=== PATIENT | female | born 1955 | race Caucasian/White ===

== ENCOUNTER 2020-07-05 09:32 | Outpatient (REF) | payer BC, SELFPAY ==
--- NOTE | ~2020-07-05 | MM_ITS ---
EXAMINATION: MM SCREENING DIGITAL BREAST TOMOSYNTHESIS, BILATERAL CLINICAL INFORMATION: Screening. Asymptomatic. The lifetime risk of breast cancer based on the Tyrer-Cuzick Model is 5%. COMPARISON: Mammography: 10/22/2017, 07/20/2011 TECHNIQUE: Digital breast tomosynthesis is performed in both the craniocaudal and mediolateral oblique views along with computer-aided detection (CAD). Synthesized 2D images are generated from the tomosynthesis. Additional right CC view is provided. FINDINGS: There are scattered areas of fibroglandular density (ACR BI-RADS breast composition Category b). The right breast shows no significant change from prior studies. There is no developing density or interval mass or architectural abnormality. Neither breast shows abnormal calcifications. The axilla and skin contours are unremarkable. The left CC view has asymmetric density retroareolar breast measuring approximately 0.7 x 0.4 cm without definite correlate on MLO view. Patient will be recalled for additional imaging. MM/MM tomosynthesis screening BI IMPRESSION: 1. Left: Retroareolar asymmetric density under 1 cm on CC view. 2. Right: No mammographic evidence of malignancy. ASSESSMENT: BI-RADS 0: Incomplete - Need Additional Imaging Evaluation RECOMMENDATION: 1. Additional views of the left breast (3-D rolled CC x2, 3-D ML nipple in profile). 2. Targeted ultrasound if warranted after review of the additional views. 3. Radiology department staff will contact the patient for additional imaging. This patient's information was entered into a reminder system with a target due date for their next mammogram.
== END 2020-07-05 09:33 | disposition home or self-care (01) ==
LOC: HO.MAMMO 09:32
PROVIDERS: PCP Physician Assistant Medical; Visit Provider Physician Assistant Medical
DX: Z12.31 Encounter for screening mammogram for malignant neoplasm of breast (principal)
CPT/HCPCS: 77063; 77067

== ENCOUNTER 2020-07-18 14:35 | Outpatient (REF) | payer BC, SELFPAY ==
--- NOTE | ~2020-07-18 | US_ITS ---
EXAMINATION: US DIAGNOSTIC ULTRASOUND BREAST, LEFT CLINICAL INFORMATION: Retroareolar density. COMPARISON: Mammography of same day as well as studies dating back to May 02, 2009. TECHNIQUE: Ultrasound of the breast is performed with real-time guzman scale imaging and color Doppler. FINDINGS: Targeted left breast ultrasound did not demonstrate any suspicious cystic or solid masses. No region of abnormal distal sound shadowing were appreciated. There is a question of an oval circumscribed structure with outer hypoechoic region and inner hyperechoic region which may represent a small lymph node measuring 6 x 3 mm in size however no definite vascular flow within the hilum is appreciated. On mammography from October 05, 2020 the density measured approximately 7 x 4 mm in size. Results are discussed with the patient at time of visit. US/US breast LT limited IMPRESSION: Retroareolar density left breast may represent intramammary lymph node as no suspicious cystic or solid mass was appreciated and no region of abnormal distal sound shadowing was seen. Recommend 6 month follow-up left breast mammogram to ensure stability. ASSESSMENT: BI-RADS 3: Probably Benign RECOMMENDATION: Diagnostic mammography in 6 months.
--- NOTE | ~2020-07-18 | MM_ITS ---
EXAMINATION: MM DIAGNOSTIC DIGITAL BREAST TOMOSYNTHESIS, LEFT Targeted left breast ultrasound CLINICAL INFORMATION: Retroareolar left breast density COMPARISON: Mammography: 07/05/2020 and studies dating back to 05/02/2009. TECHNIQUE: Digital breast tomosynthesis is performed. 2D images are generated from the tomosynthesis. The following views are obtained: Rolled craniocaudal views and spot compression left breast craniocaudal view as well as full-field 90 degree mediolateral view. Targeted left breast ultrasound FINDINGS: There are scattered areas of fibroglandular density (ACR BI-RADS breast composition Category b). Approximately 2 cm from the nipple retroareolar region there appears be persistence of a circumscribed density with question fatty hilum. No spiculated mass or suspicious calcifications identified. Targeted left breast ultrasound did not demonstrate any suspicious cystic or solid masses. No region of abnormal distal sound shadowing were appreciated. There is a question of an oval circumscribed structure with outer hypoechoic region and inner hyperechoic region which may represent a small lymph node measuring 6 x 3 mm in size however no definite vascular flow within the hilum is appreciated. On mammography from 10/05/2020 the density measured approximately 7 x 4 mm in size. Results are discussed with the patient at time of visit. MM/MM tomosynthesis added views L IMPRESSION: Retroareolar density left breast may represent intramammary lymph node as no suspicious cystic or solid mass was appreciated and no region of abnormal distal sound shadowing was seen. Recommend 6 month follow-up left breast mammogram to ensure stability. ASSESSMENT: BI-RADS 3: Probably Benign RECOMMENDATION: Diagnostic mammography in 6 months. This patient's information was entered into a reminder system with a target due date for their next mammogram.
== END 2020-07-18 14:36 | disposition home or self-care (01) ==
LOC: HO.MAMMO 14:35
PROVIDERS: Visit Provider Physician Assistant Medical
DX: R92.2 Inconclusive mammogram (principal)
CPT/HCPCS: 76642; 77061; 77065

== ENCOUNTER 2021-02-09 13:53 | Outpatient (REF) | payer BC, SELFPAY ==
--- NOTE | ~2021-02-09 | MM_ITS ---
EXAMINATION: MM DIAGNOSTIC DIGITAL BREAST TOMOSYNTHESIS, LEFT CLINICAL INFORMATION: Short interval follow-up probable benign asymmetric density retroareolar 6:00 left breast. The lifetime risk of breast cancer based on the Tyrer-Cuzick Model is 3%. COMPARISON: Mammography: 07/18/2020, 07/05/2020 (BI-RADS 0), 10/22/2017, 07/20/2011; targeted left breast ultrasound 07/18/2020 TECHNIQUE: Digital breast tomosynthesis is performed in both the craniocaudal and mediolateral oblique views along with computer-aided detection (CAD). Synthesized 2D images are generated from the tomosynthesis. FINDINGS: There are scattered areas of fibroglandular density (ACR BI-RADS breast composition Category b). Parenchymal pattern is similar to prior exam. Asymmetric density anterior central 6:00 position is stable. Finding likely stable from more remote mammography, not as well appreciated due to shifting fibroglandular densities. There is no developing density from recent exam or interval architectural changes. Left breast will be reassessed again in 6 months at time of annual exam. Results are provided to the patient at time of visit by the technologist. MM/MM tomosynthesis diagnostic LT IMPRESSION: There are no significant changes from prior study. ASSESSMENT: BI-RADS 3: Probably Benign RECOMMENDATION: Diagnostic mammography at time of annual bilateral mammography, due in 6 months. This patient's information was entered into a reminder system with a target due date for their next mammogram.
== END 2021-02-09 13:54 | disposition home or self-care (01) ==
LOC: HO.MAMMO 13:53
PROVIDERS: PCP Physician Assistant Medical; Visit Provider Physician Assistant Medical
DX: R92.2 Inconclusive mammogram (principal)
CPT/HCPCS: 77061; 77065

== ENCOUNTER 2021-10-02 14:40 | Outpatient (REF) | payer BC, SELFPAY ==
--- NOTE | ~2021-10-02 | MM_ITS ---
EXAMINATION: MM DIAGNOSTIC DIGITAL BREAST TOMOSYNTHESIS, BILATERAL CLINICAL INFORMATION: Yearly screening right breast mammogram. 6 month follow-up left breast densities. The lifetime risk of breast cancer based on the Tyrer-Cuzick Model is 4%. COMPARISON: Mammography: 02/09/2021 and studies dating back to 05/02/2009. TECHNIQUE: Digital breast tomosynthesis is performed in both the craniocaudal and mediolateral oblique views along with computer-aided detection (CAD). Synthesized 2D images are generated from the tomosynthesis. FINDINGS: There are scattered areas of fibroglandular density (ACR BI-RADS breast composition Category b). There appears to be stability of the 2 circumscribed densities about the anterior left breast dating back to 11/12/2017. One of them has the appearance of a lymph node with fatty cleft. Results are provided to the patient at time of visit by the technologist. MM/MM tomosynthesis diagnostic BI IMPRESSION: There are no significant changes from prior study. ASSESSMENT: BI-RADS 2: Benign RECOMMENDATION: Routine annual mammography screening due in 12 months. This patient's information was entered into a reminder system with a target due date for their next mammogram.
== END 2021-10-02 14:41 | disposition home or self-care (01) ==
LOC: HO.MAMMO 14:40
PROVIDERS: Visit Provider Physician Assistant Medical
DX: R92.8 Other abnormal and inconclusive findings on diagnostic imaging of breast (principal)
CPT/HCPCS: 77062; 77066

== ENCOUNTER 2023-11-19 10:18 | Outpatient (REF) | payer BC, SELFPAY ==
--- NOTE | ~2023-11-19 | MM_ITS ---
EXAMINATION: MM SCREENING DIGITAL BREAST TOMOSYNTHESIS, BILATERAL CLINICAL INFORMATION: Screening. Asymptomatic. COMPARISON: Mammography: Comparison is made with available priors TECHNIQUE: Digital breast mammography with tomosynthesis is performed in both the craniocaudal and mediolateral oblique views along with computer-aided detection (CAD). FINDINGS: There are scattered areas of fibroglandular density (ACR BI-RADS breast composition Category b). There are no significant masses, abnormal calcifications, or other abnormalities. MM/MM tomosynthesis screening BI IMPRESSION: No mammographic evidence of malignancy. ASSESSMENT: BI-RADS BI-RADS 1 - Negative RECOMMENDATION: Routine annual mammography screening. 1 year F/U This examination should not preclude the clinical evaluation of a suspicious palpable abnormality. This patient's information was entered into a reminder system with a target due date for their next mammogram. Electronically signed by: Darcy Glynn DO 12/02/2023 10:42 AM EDT
== END 2023-11-19 10:19 | disposition home or self-care (01) ==
LOC: HO.MAMMO 10:18
PROVIDERS: Absent Provider Plastic Surgery; Visit Provider Physician Assistant Medical
DX: Z12.31 Encounter for screening mammogram for malignant neoplasm of breast (principal)
CPT/HCPCS: 77063; 77067

== ENCOUNTER → 2023-11-19 10:30 | Outpatient (BNV) | payer BC, SELFPAY | PROVIDERS: Absent Provider Plastic Surgery; Visit Provider Internal Medicine | DX: Z12.31 Encounter for screening mammogram for malignant neoplasm of breast (principal) | CPT/HCPCS: 77063; 77067 ==